=== PATIENT | male | born 1990 | race Caucasian/White ===

== ENCOUNTER 2017-12-03 21:54 | Emergency (ER) | payer OTHER ==
[~2017-12-03] VITALS: Ht 177.8 cm; Wt 140.6 kg
[~2017-12-03 21:54] MED LIST: BASAGLAR K100 UNIT/1 SQ; CLIN300 PO; Cleocin HCl300 MG PO; DOXY100 PO; FISH1000; GLIP5 PO; HYDACE5 PO; Humalog100 UNIT/1 SC; INSDET100 SC; INSUASPI SC; INSULANPEN; LISI20 PO; LISI5 PO; METF500 PO; PIOG30 PO; RIFA300 PO; RXCLIN PO; RXHYDACE PO; Vitamin D2000 UNIT PO; Zofran Odt4 MG SL
[2017-12-04 00:27] LABS: Base Excess Venous 0.3 mmol/L; PCO2 Venous 36.7 mmHg (38-42); PO2 Venous 133 mmHg (38-42); pH Blood Venous 7.44 (7.34-7.37)
[2017-12-04 00:34] LABS: BASOPHILS ABSOLUTE AUTO 0.03 K/mm3 (0.00-0.23); BASOPHILS PERCENT AUTO 0 % (0-2); EOSINOPHILS ABSOLUTE AUTO 0.01 K/mm3 (0.00-0.68); EOSINOPHILS PERCENT AUTO 0 % (0-6); Hematocrit 43.1 % (37.0-53.0); IMMATURE GRAN ABSOLUTE AUTO 0.03 K/mm3 (0.00-0.10); IMMATURE GRAN PERCENT AUTO 0 % (0-1); LYMPHOCYTES ABSOLUTE AUTO 1.46 K/mm3 (0.84-5.20); LYMPHOCYTES PERCENT AUTO 16 % (21-46); MONOCYTES ABSOLUTE AUTO 0.61 K/mm3 (0.16-1.47); MONOCYTES PERCENT AUTO 7 % (4-13); Mean Corpuscular HGB 28.5 pg (26.0-34.0); Mean Corpuscular HGB Conc 34.8 g/dL (31.5-36.5); Mean Corpuscular Volume 82 fL (80-100); Mean Platelet Volume 9.9 fL (9.1-12.4); NEUTROPHILS ABSOLUTE AUTO 7.04 K/mm3 (1.96-9.15); NEUTROPHILS PERCENT AUTO 77 % (41-73); Platelet Count 184 K/mm3 (150-400); RDW Coefficient Variation 16.3 % (11.7-14.2); RDW Standard Deviation 49.1 fL (35.1-46.3); Red Blood Cell Count 5.26 M/mm3 (4.30-5.90); White Blood Cell Count 9.18 K/mm3 (4.00-11.30)
[2017-12-04 00:58] LABS: Alanine Aminotransfer (ALT/SGP 33 U/L (12-78); Albumin, Blood 3.7 g/dL (3.4-5.0); Albumin/Globulin Ratio 0.8 (0.8-1.8); Alk Phos 52 U/L (50-136); Anion Gap 9 mmol/L (6-16); Aspartate Aminotrans (AST/SGOT 19 U/L (12-37); Bilirubin, Total 0.8 mg/dL (0.1-1.0); Blood Urea Nitrogen 16 mg/dL (8-24); Bun/Creatinine Ratio 25.7 (12.0-20.0); CO2, Blood 25 mmol/L (21-32); Calcium, Blood 8.8 mg/dL (8.5-10.1); Chloride, Blood 98 mmol/L (98-108); Creatinine, Blood 0.62 mg/dL (0.60-1.20); Globulin, Blood 4.4 g/dL (2.2-4.0); Glomerular Filtration Rate >60 (60-); Glucose, Blood 401 mg/dL (70-99); Magnesium, Blood 2.1 mg/dL (1.6-2.4); Potassium, Blood 4.2 mmol/L (3.5-5.5); Sodium, Blood 132 mmol/L (136-145); Total Protein, Blood 8.1 g/dL (6.4-8.2)
[2017-12-04 01:03] LABS: Beta-hydroxybutyrate 4.9 mg/dL (0.2-2.8)
[2017-12-04] MEDS ORDERED: Ocuflox5 ML LEFTEYE (01:20)
[2017-12-04] MEDS ORDERED: Floxin10 ML LEFTEAR (01:21)
[2017-12-05] MEDS ORDERED: Norco 5-325 Ta1 EACH PO (22:46)
== END 2017-12-04 01:30 | disposition home or self-care (01) ==
LOC: ER 21:54
PROVIDERS: Emergency Medicine
DX: H60.92 Unspecified otitis externa, left ear (principal); E11.65 Type 2 diabetes mellitus with hyperglycemia; Z91.14 Patient's other noncompliance with medication regimen; Z79.899 Other long term (current) drug therapy; Z79.4 Long term (current) use of insulin; Z79.84 Long term (current) use of oral hypoglycemic drugs; I10 Essential (primary) hypertension; E66.9 Obesity, unspecified
CPT/HCPCS: 80053; 82010; 82803; 82947; 83735; 85025; 96361; 96374; 99283; J1815; J1885; J7030

== ENCOUNTER 2017-12-05 20:06 | Emergency (ER) | payer OTHER ==
[~2017-12-05] VITALS: Ht 177.8 cm; Wt 136.1 kg
[~2017-12-05 20:06] MED LIST changes: +Floxin10 ML LEFTEAR; +Ocuflox5 ML LEFTEYE
[2017-12-05] MEDS ORDERED: Norco 5-325 Ta1 EACH PO (22:46)
== END 2017-12-05 22:54 | disposition home or self-care (01) ==
LOC: ER 20:06
DX: H60.91 Unspecified otitis externa, right ear (principal); H60.92 Unspecified otitis externa, left ear; E11.9 Type 2 diabetes mellitus without complications; I10 Essential (primary) hypertension; Z79.899 Other long term (current) drug therapy; Z79.4 Long term (current) use of insulin
CPT/HCPCS: 99283

== ENCOUNTER → 2019-04-01 | Outpatient (CLI) | payer OTHER ==
[~2019-04-01] MED LIST changes: +ATOR10 PO; +Norco 5-325 Ta1 EACH PO; +THERA-D2000 UNIT PO; +Vancocin HCL1000 M1 IV
== END | disposition home or self-care (01) ==
LOC: LAB SHORT 11:48 → LAB 11:48
DX: L03.032 Cellulitis of left toe (principal)
CPT/HCPCS: 87070; 87075; 87147; 87205

== ENCOUNTER 2019-04-02 10:00 | Day surgery (SDC) | payer OTHER ==
[~2019-04-02] VITALS: Ht 177.8 cm; Wt 133.2 kg
[~2019-04-02 10:00] MED LIST changes: -ATOR10 PO; -THERA-D2000 UNIT PO; -Vancocin HCL1000 M1 IV
[2019-04-02] MEDS ORDERED: ATOR10 PO (11:26)
[2019-04-02] MEDS ORDERED: THERA-D2000 UNIT PO (11:28)
[2019-04-03] MEDS ORDERED: Vancocin HCL1000 M1 IV (07:45)
== END 2019-04-02 12:00 | disposition home or self-care (01) ==
LOC: ATC 10:00
DX: L03.116 Cellulitis of left lower limb (principal); E11.621 Type 2 diabetes mellitus with foot ulcer; L97.529 Non-pressure chronic ulcer of other part of left foot with unspecified severity; I10 Essential (primary) hypertension; Z79.899 Other long term (current) drug therapy
CPT/HCPCS: 96365; 96366; J3370; J7050

== ENCOUNTER 2019-04-02 20:03 | Emergency (ER) | payer OTHER ==
[~2019-04-02] VITALS: Ht 177.8 cm; Wt 133.8 kg
[~2019-04-02 20:03] MED LIST changes: +ATOR10 PO; +THERA-D2000 UNIT PO
[2019-04-03] MEDS ORDERED: Vancocin HCL1000 M1 IV (07:45)
== END 2019-04-02 22:44 | disposition home or self-care (01) ==
LOC: ER 20:03
DX: E11.628 Type 2 diabetes mellitus with other skin complications (principal); L03.031 Cellulitis of right toe; I10 Essential (primary) hypertension; Z79.899 Other long term (current) drug therapy
CPT/HCPCS: 96365; 96366; 99281-25; J3370; J7050

== ENCOUNTER 2019-04-03 07:08 | Day surgery (SDC) | payer OTHER ==
[2019-04-03] MEDS ORDERED: Vancocin HCL1000 M1 IV (07:45)
--- NOTE | 2019-04-03 19:48 | NUR ---
1630: PHARMACY CALLED AND SPOKE WITH CHAD Crowe TO INFORM HER THAT PT TOLD ME THAT HE WONT BE IN TOMORROW D/T WOUND CARE APPT WITH DR HICKMAN. UNSURE IF WILL BE CONTINUING IV VANCOMYCIN.
== END 2019-04-03 22:38 | disposition home or self-care (01) ==
LOC: ATC 07:08
DX: L03.116 Cellulitis of left lower limb (principal); E11.621 Type 2 diabetes mellitus with foot ulcer; L97.529 Non-pressure chronic ulcer of other part of left foot with unspecified severity; I10 Essential (primary) hypertension; Z79.899 Other long term (current) drug therapy
CPT/HCPCS: 96365; 96366; J3370; J7050

== ENCOUNTER 2021-07-24 08:43 | Emergency (ER) | payer OTHER ==
[~2021-07-24] VITALS: Ht 177.8 cm; Wt 124.7 kg
[~2021-07-24 08:43] MED LIST changes: +Vancocin HCL1000 M1 IV
[2021-07-24] MEDS ORDERED: Fenofibrate134 MG PO (09:11)
[2021-07-24] MEDS ORDERED: VITAMIN D5000 UNIT PO (09:12)
[2021-07-24] MEDS ORDERED: METFORMIN HCL500 M3 PO (09:12)
[2021-07-24 09:55] LABS: BASOPHILS ABSOLUTE AUTO 0.04 K/mm3 (0.00-0.23); BASOPHILS PERCENT AUTO 0 % (0-2); EOSINOPHILS ABSOLUTE AUTO 0.09 K/mm3 (0.00-0.68); EOSINOPHILS PERCENT AUTO 1 % (0-6); Hemoglobin 14.1 g/dL (13.5-17.5); IMMATURE GRAN ABSOLUTE AUTO 0.08 K/mm3 (0.00-0.10); IMMATURE GRAN PERCENT AUTO 1 % (0-1); LYMPHOCYTES PERCENT AUTO 9 % (21-46); MONOCYTES ABSOLUTE AUTO 0.77 K/mm3 (0.16-1.47); MONOCYTES PERCENT AUTO 6 % (4-13); Mean Corpuscular HGB Conc 34.4 g/dL (31.5-36.5); Mean Corpuscular Volume 78 fL (80-100); Mean Platelet Volume 9.6 fL (9.1-12.4); NEUTROPHILS ABSOLUTE AUTO 11.61 K/mm3 (1.96-9.15); NEUTROPHILS PERCENT AUTO 84 % (41-73); Platelet Count 224 K/mm3 (150-400); RDW Standard Deviation 45.2 fL (35.1-46.3); Red Blood Cell Count 5.23 M/mm3 (4.30-5.90); White Blood Cell Count 13.79 K/mm3 (4.00-11.30)
[2021-07-24 10:30] LABS: Alanine Aminotransfer (ALT/SGP 30 U/L (12-78); Albumin, Blood 3.5 g/dL (3.4-5.0); Albumin/Globulin Ratio 0.9 (0.8-1.8); Alk Phos 48 U/L (50-136); Anion Gap 8 mmol/L (6-16); Aspartate Aminotrans (AST/SGOT 12 U/L (12-37); Bilirubin, Total 0.7 mg/dL (0.1-1.0); Blood Urea Nitrogen 16 mg/dL (8-24); Bun/Creatinine Ratio 28.4 (12.0-20.0); CO2, Blood 24 mmol/L (21-32); Calcium, Blood 8.8 mg/dL (8.5-10.1); Chloride, Blood 101 mmol/L (98-108); Creatinine, Blood 0.56 mg/dL (0.60-1.20); Globulin, Blood 3.9 g/dL (2.2-4.0); Glomerular Filtration Rate >60 (60-); Glucose, Blood 414 mg/dL (70-99); Potassium, Blood 4.3 mmol/L (3.5-5.5); Sodium, Blood 133 mmol/L (136-145); Total Protein, Blood 7.4 g/dL (6.4-8.2)
[2021-07-24] MEDS ORDERED: CEPH500 PO (10:37)
[2021-07-24] MEDS ORDERED: Monodox100 MG PO (10:37)
== END 2021-07-24 10:44 | disposition home or self-care (01) ==
LOC: ER 08:43
PROVIDERS: Physician Assistant
DX: L03.011 Cellulitis of right finger (principal); E11.9 Type 2 diabetes mellitus without complications; I10 Essential (primary) hypertension; Z79.899 Other long term (current) drug therapy
CPT/HCPCS: 36415; 73130; 80053; 85025; 85651; 99283-25; A9270

== ENCOUNTER 2021-08-21 12:17 | Inpatient (IN) | payer OTHER ==
[~2021-08-21] VITALS: Ht 177.8 cm; Wt 127.0 kg
[~2021-08-21 12:17] MED LIST changes: +CEPH500 PO; +Fenofibrate134 MG PO; +METFORMIN HCL500 M3 PO; +Monodox100 MG PO; +VITAMIN D5000 UNIT PO
[2021-08-21 12:52] LABS: BASOPHILS ABSOLUTE AUTO 0.03 K/mm3 (0.00-0.23); BASOPHILS PERCENT AUTO 1 % (0-2); EOSINOPHILS ABSOLUTE AUTO 0.05 K/mm3 (0.00-0.68); EOSINOPHILS PERCENT AUTO 1 % (0-6); Hematocrit 48.9 % (37.0-53.0); Hemoglobin 16.2 g/dL (13.5-17.5); IMMATURE GRAN ABSOLUTE AUTO 0.05 K/mm3 (0.00-0.10); IMMATURE GRAN PERCENT AUTO 1 % (0-1); LYMPHOCYTES ABSOLUTE AUTO 1.68 K/mm3 (0.84-5.20); LYMPHOCYTES PERCENT AUTO 27 % (21-46); MONOCYTES ABSOLUTE AUTO 0.48 K/mm3 (0.16-1.47); MONOCYTES PERCENT AUTO 8 % (4-13); Mean Corpuscular HGB 26.6 pg (26.0-34.0); Mean Corpuscular HGB Conc 33.1 g/dL (31.5-36.5); Mean Corpuscular Volume 80 fL (80-100); Mean Platelet Volume 9.5 fL (9.1-12.4); NEUTROPHILS PERCENT AUTO 63 % (41-73); Platelet Count 211 K/mm3 (150-400); RDW Coefficient Variation 18.1 % (11.7-14.2); RDW Standard Deviation 48.3 fL (35.1-46.3); White Blood Cell Count 6.19 K/mm3 (4.00-11.30)
[2021-08-21 13:14] LABS: Alanine Aminotransfer (ALT/SGP 54 U/L (12-78); Albumin/Globulin Ratio 0.9 (0.8-1.8); Alk Phos 46 U/L (50-136); Anion Gap 11 mmol/L (6-16); Aspartate Aminotrans (AST/SGOT 31 U/L (12-37); Bilirubin, Total 0.5 mg/dL (0.1-1.0); Blood Urea Nitrogen 16 mg/dL (8-24); Bun/Creatinine Ratio 25.8 (12.0-20.0); CO2, Blood 21 mmol/L (21-32); Calcium, Blood 9.4 mg/dL (8.5-10.1); Chloride, Blood 102 mmol/L (98-108); Creatinine, Blood 0.62 mg/dL (0.60-1.20); Globulin, Blood 4.3 g/dL (2.2-4.0); Glomerular Filtration Rate >60 (60-); Glucose, Blood 360 mg/dL (70-99); Potassium, Blood 4.5 mmol/L (3.5-5.5); Sodium, Blood 134 mmol/L (136-145); Total Protein, Blood 8.3 g/dL (6.4-8.2)
[2021-08-21] MEDS ORDERED: GLIP5ER PO (14:09)
--- NOTE | 2021-08-21 16:51 | NUR ---
PATIENT ARRIVED FROM ER TODAY 08/21/21 @ 1630. RIGHT MIDDLE FINGER CELLULITIS PATIENT IS ALERT AND ORIENTED X4. PATIENT STATES "I NORMALLY HAVE A HIGH PULSE AND BP". IV IS INFUSING WITH FLUIDS. RIGHT MIDDLE FINGER IS RED AND 1+ EDEMA. PATIENT DENIES PAIN TO THE RIGHT MIDDLE FINGER. HE IS ABLE TO BEND THE FINGER AND HAS SENSATION. PATIENT IS LAYING IN BED. CALL LIGHT WITHIN REACH. ORTHO HAS BEEN CONSULTED AND WAITING FOR A CALL BACK.
[2021-08-22 01:39] LABS: Influenza A, PCR NEGATIVE (NEGATIVE); Influenza B, PCR NEGATIVE (NEGATIVE); Resp Syncytial Virus, PCR NEGATIVE (NEGATIVE)
[2021-08-22 02:00] LABS: SARS-Cov-2 (COVID-19) PCR, MMC POSITIVE (NEGATIVE)
[2021-08-22 04:05] LABS: BASOPHILS ABSOLUTE AUTO 0.03 K/mm3 (0.00-0.23); BASOPHILS PERCENT AUTO 1 % (0-2); EOSINOPHILS PERCENT AUTO 2 % (0-6); Hematocrit 44.2 % (37.0-53.0); Hemoglobin 14.3 g/dL (13.5-17.5); IMMATURE GRAN ABSOLUTE AUTO 0.03 K/mm3 (0.00-0.10); IMMATURE GRAN PERCENT AUTO 1 % (0-1); LYMPHOCYTES ABSOLUTE AUTO 2.63 K/mm3 (0.84-5.20); LYMPHOCYTES PERCENT AUTO 41 % (21-46); MONOCYTES ABSOLUTE AUTO 0.61 K/mm3 (0.16-1.47); MONOCYTES PERCENT AUTO 10 % (4-13); Mean Corpuscular HGB 26.5 pg (26.0-34.0); Mean Corpuscular HGB Conc 32.4 g/dL (31.5-36.5); Mean Corpuscular Volume 82 fL (80-100); Mean Platelet Volume 9.7 fL (9.1-12.4); NEUTROPHILS ABSOLUTE AUTO 2.95 K/mm3 (1.96-9.15); NEUTROPHILS PERCENT AUTO 46 % (41-73); Platelet Count 170 K/mm3 (150-400); RDW Coefficient Variation 17.4 % (11.7-14.2); RDW Standard Deviation 50.4 fL (35.1-46.3); White Blood Cell Count 6.35 K/mm3 (4.00-11.30)
[2021-08-22 04:20] LABS: Alanine Aminotransfer (ALT/SGP 45 U/L (12-78); Albumin, Blood 3.4 g/dL (3.4-5.0); Alk Phos 35 U/L (50-136); Anion Gap 8 mmol/L (6-16); Aspartate Aminotrans (AST/SGOT 21 U/L (12-37); Bilirubin, Total 0.5 mg/dL (0.1-1.0); Blood Urea Nitrogen 19 mg/dL (8-24); Bun/Creatinine Ratio 32.5 (12.0-20.0); CO2, Blood 23 mmol/L (21-32); Calcium, Blood 8.5 mg/dL (8.5-10.1); Chloride, Blood 105 mmol/L (98-108); Creatinine, Blood 0.59 mg/dL (0.60-1.20); Globulin, Blood 3.3 g/dL (2.2-4.0); Glomerular Filtration Rate >60 (60-); Glucose, Blood 208 mg/dL (70-99); Potassium, Blood 3.9 mmol/L (3.5-5.5); Sodium, Blood 136 mmol/L (136-145); Total Protein, Blood 6.7 g/dL (6.4-8.2)
--- NOTE | 2021-08-22 07:48 | NUR ---
.SUMMARY PT PREOP AND TESTED POSITIVE FOR COVID. SPOLE WITH PREOP-GILDA GROVES AND MADE AWARE OF COVID + RESULT.PT REMAINS NPO PENDING OR
--- NOTE | 2021-08-22 08:56 | NUR ---
pt watching tv, denies any complaints of pain or needs, states his night was ok, lungs are clear t/o, resp even and unlabored, no cough noted, hrr, edema noted to right ankle, piv site is clear and patent, infusing ns as ordered, npo pending surg, reports voiding and bm's without diff, skin has a walking cast on the left lower ext with a brace, he reports the brace can come off but he leaves it on, reports the cast is for wounds, right middle finger is swollen red with a open area to the middle of it. mirella, states he ambulates without diff, quintin, surg will be this afternoon, pt remains npo. call light in reach.
--- NOTE | 2021-08-22 14:22 | NUR ---
pt left for surgery, mom in room.
--- NOTE | 2021-08-22 14:43 | NUR ---
08/22/21 1443 Malathi Emery NO PREOP ANTIBIOTICS ORDERED PER DUE TO PATIENT BEING ON SCHEDULED UNASYN.
--- NOTE | 2021-08-22 14:54 | NUR ---
Pt. is in surgery, but NOK is present in the room and welcomes my visit. Establish rapport, and learn sravani eof the spiritual dynamics of the pt. from his mother. Agree to return later in the day.
--- NOTE | 2021-08-22 15:10 | NUR ---
ASSUMED CARE OF PATIENT RECIEVED REPORT FROM DR RAMIREZ. GIORGIO ROTH VSS.
--- NOTE | 2021-08-22 15:23 | NUR ---
TO SURGICAL FLLOR REPORT TO LU BACON. S MARY COLEMAN. PATIENT WIDE AWAKE
--- NOTE | 2021-08-22 15:34 | NUR ---
pt returned to room with bulky dressing on right hand. denies pain at this time, states he feels good. v.s. started, call light and bedside table within reach.
--- NOTE | 2021-08-22 18:17 | NUR ---
pt had surgery for his finger today, doing well, v.s. stable, no complaints or needs, call light in reach.
--- NOTE | 2021-08-22 18:23 | NUR ---
Pt. is awake and sitting up in bed. Pt. welcomed my visit. Pt. was pleasant, but was not interested in Spiritual Care. Continued to establish rapport. Pt. displayed evidence of gratitude for the conversation, though denied Spiritual Care.
--- NOTE | 2021-08-23 05:26 | NUR ---
SHIFT SUMMARY: PT IN BED AAOX4 WITH NO SIGNS OF DISTRESS NOTED. VS WNL. BG @ 197MG-Dl. IND DONE TODAY TO RIGHT HAND MIDDLE FINGER. DRESSING IN PLACE C/D/I. IV IN RIGHT AC INFUSING ORDERED PATENT. PT DENIES ANY PAIN. BOOT IN LEFT LOW FOOT. TOLERATED ANTIBOTIC WELL. WILL CONTINUE TO MONITOR AND MAINTAIN ALL PRECAUTIONS.
--- NOTE | 2021-08-23 17:42 | NUR ---
SHIFT SUMMARY PATIENT ALERT AND ORIENTED THROUGHOUT SHIFT. NPO UNTIL DINNER. TOLERATING ADA DIET. RIGHT MIDDLE FINGER RED, SWOLLEN. DRESSING CHANGED X2 THIS SHIFT BY ORTHO. ROUTINE FLUIDS AND ABX. INDEPENDENT IN ROOM. DENIES PAIN.
--- NOTE | 2021-08-24 05:18 | NUR ---
SHIFT SUMMARY: PT IN BED AAOX4. VS WNL. BG @ 211MG/dL. IV WITH NS INFUSING ORDERED TOLERATING WELL. UP AND INDEPENDENT IN ROOM. DRESSING ON RIGHT HAND C/D/I. TOLERATING MEDICATIONS WELL. NPO AFTER MIDNIGHT.MONIORED AND MAINTAINED ALL PRECAUTIONS.
--- NOTE | 2021-08-24 12:18 | NUR ---
PT TO OR AT [facility] 1218.
--- NOTE | 2021-08-24 17:00 | NUR ---
SHIFT SUMMARY POD0 I&D, A/O X4, VSS, TOLERATING DIET AFTER SURGERY, PAIN WELL MANAGED, GAUZE JAIME WRAP TO R HAND NOW c DRAIN PLACED IN OR PER ORTHO. NO ACUTE EVENTS THIS SHIFT, CALL LIGHT IN REACH, WILL CTM AND REPORT TO BRANDAN RN.
--- NOTE | 2021-08-24 23:28 | NUR ---
CALLED DR VILLALOBOS AND UPDATED PT BP HAS BEEN ELEVATED TODAY. GOT A ONE TIME STAT ORDER OF LISINOPRIL 20MG. 2044 PT REC'D MEDICATION ORDERED. ALSO REC'D ORDER TO DC PULSE OX FROM DR. PIERCE.
[2021-08-25 03:43] LABS: Hematocrit 40.7 % (37.0-53.0); Hemoglobin 13.1 g/dL (13.5-17.5); Mean Corpuscular HGB 26.3 pg (26.0-34.0); Mean Corpuscular HGB Conc 32.2 g/dL (31.5-36.5); Mean Corpuscular Volume 82 fL (80-100); Mean Platelet Volume 9.2 fL (9.1-12.4); Platelet Count 133 K/mm3 (150-400); RDW Coefficient Variation 16.4 % (11.7-14.2); RDW Standard Deviation 48.5 fL (35.1-46.3); Red Blood Cell Count 4.99 M/mm3 (4.30-5.90); White Blood Cell Count 5.97 K/mm3 (4.00-11.30)
[2021-08-25 04:09] LABS: Alanine Aminotransfer (ALT/SGP 58 U/L (12-78); Albumin, Blood 3.1 g/dL (3.4-5.0); Alk Phos 32 U/L (50-136); Anion Gap 6 mmol/L (6-16); Aspartate Aminotrans (AST/SGOT 28 U/L (12-37); Bilirubin, Total 0.7 mg/dL (0.1-1.0); Blood Urea Nitrogen 12 mg/dL (8-24); Bun/Creatinine Ratio 18.8 (12.0-20.0); CO2, Blood 23 mmol/L (21-32); Calcium, Blood 8.2 mg/dL (8.5-10.1); Chloride, Blood 110 mmol/L (98-108); Creatinine, Blood 0.64 mg/dL (0.60-1.20); Globulin, Blood 3.2 g/dL (2.2-4.0); Glomerular Filtration Rate >60 (60-); Glucose, Blood 147 mg/dL (70-99); Potassium, Blood 3.8 mmol/L (3.5-5.5); Sodium, Blood 139 mmol/L (136-145); Total Protein, Blood 6.3 g/dL (6.4-8.2)
--- NOTE | 2021-08-25 04:31 | NUR ---
SHIFT SUMMARY: PT IN BED AAOX4. VS STABLE BP ELEVATED. CALLED DR AMBRIZ ORDER TO GIVE ONE TIME DOSE OF BP MEDICATION PER EMAR. IV IN PLACE NOT PATENT. CHANGED IV NS INFUSING ORDERED TOLERATING WELL. INDEPENDENT IN ROOM. UP TO BATHROOM VOIDED WELL. TOLERATED MEDICATIONS PER EMAR. MONITORING AND MAINTAINING PRECAUTION. BP DECREASED THIS MORNING. WILL CONTINUE TO MONITOR.
--- NOTE | 2021-08-25 12:41 | NUR ---
DR. STEWART IN TO SEE PT., DRSG. CHANGE DONE TO LEFT HAND MIDDLE FINGER, NEW PACKING, GUAZE AND JAIME WRAP. PATIENT TOLERATE WELL AND DENIES PAIN.
--- NOTE | 2021-08-26 04:48 | NUR ---
SHIFT SUMMARY: PT SITTING UP IN BED. AAOX4. VS WNL PT DENIES PAIN. IV IN LEFT ARM PATENT SITE DRY AND INTACT. DRESSING ON RIGHT HAND C/D/I. UP AND INDEPENDENT IN ROOM. VOIDING WELL. TOLERATING ALL MEDICATIONS PER EMAR WELL. MONITORING AND MAINTAINING ALL PRECAUTION. PT WITH EYES CLOSED RESTING WELL.
--- NOTE | 2021-08-26 15:02 | NUR ---
DR. STEWART IN TODAY AND DRSG. CHANGE DONE . PATIENT DENIES ANY PAIN. APPETITE IS GOOD AND PT. REPORTS REGULAR BOWEL MOVEMENTS. REMAINS IN ISOLATION. REPORTS NO COVID SYMPTOMS, NO COMPLAINTS. DRSG. ON R HAND WITH JAIME WRAP CLEAN DRY AND INTACT, FINGER TIPS WARM. DR. STEWART REPORT THAT MIDDLE FINGER WITH PACKING IS STILL VERY RED.
--- NOTE | 2021-08-27 04:53 | NUR ---
SHIFT SUMMARY: PT SITTING UP IN BED AAOX4. VS WNL WITH NO SIGNS OF DISTRESS NOTED. IV SITE LEFT ARM PATENT FLUIDS INFUSING ORDERED. RIGHT HAND WITH DRESSING C/D/I. PT DENIES PAIN. MEDICATED PER EMAR. MONITORING AND MAINTAINING ALL PRECAUTION.
[2021-08-27 05:41] LABS: Hemoglobin 12.9 g/dL (13.5-17.5); Mean Corpuscular HGB 26.8 pg (26.0-34.0); Mean Corpuscular HGB Conc 33.1 g/dL (31.5-36.5); Mean Corpuscular Volume 81 fL (80-100); Mean Platelet Volume 9.4 fL (9.1-12.4); Platelet Count 140 K/mm3 (150-400); RDW Coefficient Variation 16.1 % (11.7-14.2); RDW Standard Deviation 47.8 fL (35.1-46.3); Red Blood Cell Count 4.82 M/mm3 (4.30-5.90); White Blood Cell Count 5.45 K/mm3 (4.00-11.30)
[2021-08-27 06:06] LABS: Anion Gap 7 mmol/L (6-16); Blood Urea Nitrogen 9 mg/dL (8-24); Bun/Creatinine Ratio 15.3 (12.0-20.0); CO2, Blood 24 mmol/L (21-32); Calcium, Blood 8.6 mg/dL (8.5-10.1); Chloride, Blood 109 mmol/L (98-108); Creatinine, Blood 0.59 mg/dL (0.60-1.20); Glomerular Filtration Rate >60 (60-); Glucose, Blood 124 mg/dL (70-99); Potassium, Blood 3.6 mmol/L (3.5-5.5); Sodium, Blood 140 mmol/L (136-145)
--- NOTE | 2021-08-27 16:59 | NUR ---
SHIFT SUMMARY: NO ACUTE EVENTS. DENIED PAIN. INDEPENDENT IN ROOM. TOLERATING PO INTAKE, GOOD APPETITE. DR. PIERCE ASSESSED PATIENT AND CHANGED DRESSING. THIS AUTHOR ASKED ABOUT CHANGING PT TO PO ABX AND D/C PLAN, BUT PROVIDER STATED THAT HE SAW A MICRO RESULT THAT SHOWED MARY GROWING IN WOUND. THIS AUTHOR COULD NOT FIND THIS RESULT. D/C PLAN PENDING.
--- NOTE | 2021-08-28 03:35 | NUR ---
PT IS ALERT AND ORIENTED X4. DENIES PAIN MEDICATION. TOLERATING DIET. VOIDING. UP AD GEGE. CAST BOOT ON LEFT FOOT. RIGHT HAND WITH GOOD PULSES AND ABLE TO MOVE THE FINGERS. VSS.
--- NOTE | 2021-08-28 11:54 | NUR ---
08/28/21 1154 Sharon Walter VERIFICATIONS: EDIT CHART.
--- NOTE | 2021-08-28 17:53 | NUR ---
SUMMARY- PT A/O X4, INDEPENDANT IN ROOM. VOIDING AND REG BM'S. HAD BM THIS AM. DENIES PAIN IN FINGER/HAND. DRESSING CDI. BLOOD SUGARS IN GOOD RANGE. DR PIERCE IN AT 1800 TO TAKEDOWN DRESSING AND EVAL INCISION. PLAN TO LIKELY DC IN AM ON [place] ABX.
--- NOTE | 2021-08-29 02:59 | NUR ---
SHIFT SUMMARY: PT. AOX4, INDEPENDENT IN ROOM. DENIES PAIN TO R HAND & R MIDDLE FINGER. USING HIS LAPTOP IN ROOM. NO ACUTE CHANGES NOTED. R HAND WITH DRESSING & ACEWRAP. IV ANTIBIOTICS TOLERATED WELL. REMINDED TO CALL FOR HELP USING A CALL LIGHT FOR NEEDS, PT. VERBALIZED UNDERSTANDING.
[2021-08-29 04:37] LABS: Hematocrit 38.3 % (37.0-53.0); Hemoglobin 12.7 g/dL (13.5-17.5); Mean Corpuscular HGB 26.6 pg (26.0-34.0); Mean Corpuscular HGB Conc 33.2 g/dL (31.5-36.5); Mean Corpuscular Volume 80 fL (80-100); Mean Platelet Volume 9.3 fL (9.1-12.4); Platelet Count 163 K/mm3 (150-400); RDW Standard Deviation 46.9 fL (35.1-46.3); Red Blood Cell Count 4.77 M/mm3 (4.30-5.90)
[2021-08-29 05:04] LABS: Anion Gap 7 mmol/L (6-16); Blood Urea Nitrogen 10 mg/dL (8-24); CO2, Blood 24 mmol/L (21-32); Calcium, Blood 8.4 mg/dL (8.5-10.1); Chloride, Blood 109 mmol/L (98-108); Creatinine, Blood 0.62 mg/dL (0.60-1.20); Glomerular Filtration Rate >60 (60-); Glucose, Blood 119 mg/dL (70-99); Potassium, Blood 3.6 mmol/L (3.5-5.5); Sodium, Blood 140 mmol/L (136-145)
[2021-08-29] MEDS ORDERED: AMOCLA875 PO (12:57)
--- NOTE | 2021-08-29 14:20 | NUR ---
PT. DISCHARGED TO HOME. DC INSTRUCTIONS GIVEN AND PRECRIPTION FOR [facility]UG[facility]IN FAXED TO [facility]. WOUND CLINIC CALLED AND MESSAGE LEFT. PATIENT TO GO TO WOUND CLINIC DAILY PER DR. STEWART. PATIENT BELONGINGS AND DC INSTRUCTIONS SENT WITH PATIENT. W/C TO EXIT, TO HOME.
== END 2021-08-29 14:20 | disposition home or self-care (01) | DRG 579 ==
LOC: ER 12:17 → SURS 12:18
PROVIDERS: Internal Medicine; Orthopaedic Surgery; Physician Assistant; ADMIT Internal Medicine
PROC: 3E03329 Introduction of Other Anti-infective into Peripheral Vein, Percutaneous Approach (ICD-10-PCS; 2021-08-21)
PROC: 0LB70ZZ Excision of Right Hand Tendon, Open Approach (ICD-10-PCS; 2021-08-22)
PROC: 0PBT0ZZ Excision of Right Finger Phalanx, Open Approach (ICD-10-PCS; principal; 2021-08-24 12:00)
DX: L03.011 Cellulitis of right finger (principal); U07.1 COVID-19; M00.9 Pyogenic arthritis, unspecified; Z68.41 Body mass index [BMI] 40.0-44.9, adult; E11.621 Type 2 diabetes mellitus with foot ulcer; E66.01 Morbid (severe) obesity due to excess calories; I10 Essential (primary) hypertension; D64.9 Anemia, unspecified; E55.9 Vitamin D deficiency, unspecified; E11.65 Type 2 diabetes mellitus with hyperglycemia; Z79.899 Other long term (current) drug therapy; Z98.890 Other specified postprocedural states
CPT/HCPCS: 0241U; 36415; 73201; 80048; 80053; 82947; 83036; 85025; 85027; 85651; 86141; 87070; 87075; 87205; 93005; 93010; 96365; 96366; 99284-25; A9270; G0378; J0295; J1815; J2001; J2250; J2704; J3010; J7030; J7050; J7120; Q9967

== ENCOUNTER → 2021-09-02 | Outpatient (CLI) | payer OTHER ==
[~2021-09-02] MED LIST changes: +AMOCLA875 PO; +GLIP5ER PO
[2021-09-02 18:57] LABS: Creatinine Urine 44.2 mg/dL (27.00-270.00); Protein, Urine Quantitative 54.2 mg/dL (0.0-11.9)
== END | disposition home or self-care (01) ==
LOC: LAB SHORT 13:57 → LAB FUT 08-30 13:50
PROVIDERS: Internal Medicine Nephrology
DX: N18.2 Chronic kidney disease, stage 2 (mild) (principal); D63.1 Anemia in chronic kidney disease; N25.81 Secondary hyperparathyroidism of renal origin; E55.9 Vitamin D deficiency, unspecified; E78.00 Pure hypercholesterolemia, unspecified; R76.9 Abnormal immunological finding in serum, unspecified; R94.5 Abnormal results of liver function studies; R94.6 Abnormal results of thyroid function studies
CPT/HCPCS: 81050; 82043; 82570; 84156

== ENCOUNTER 2021-09-06 00:23 | Day surgery (SDC) | payer OTHER | END 2021-09-06 23:59 | disposition home or self-care (01) | LOC: WOUND 00:23 | DX: L03.113 Cellulitis of right upper limb (principal); S61.401D Unspecified open wound of right hand, subsequent encounter; J45.909 Unspecified asthma, uncomplicated; I10 Essential (primary) hypertension; E11.42 Type 2 diabetes mellitus with diabetic polyneuropathy; Z87.891 Personal history of nicotine dependence | CPT/HCPCS: A9270; G0463 ==

== ENCOUNTER 2021-09-13 02:25 | Day surgery (SDC) | payer OTHER | END 2021-09-13 23:29 | disposition home or self-care (01) | LOC: WOUND 02:25 | DX: L03.113 Cellulitis of right upper limb (principal) ==

== ENCOUNTER 2021-09-20 02:53 | Day surgery (SDC) | payer OTHER | END 2021-09-20 23:06 | disposition home or self-care (01) | LOC: WOUND 02:53 | DX: L03.011 Cellulitis of right finger (principal); S61.202A Unspecified open wound of right middle finger without damage to nail, initial encounter; R00.0 Tachycardia, unspecified | CPT/HCPCS: G0463 ==

== ENCOUNTER 2021-09-27 01:20 | Day surgery (SDC) | payer OTHER | END 2021-09-27 23:34 | disposition home or self-care (01) | LOC: WOUND 01:20 | DX: L03.011 Cellulitis of right finger (principal); M86.9 Osteomyelitis, unspecified | CPT/HCPCS: A9270; G0463 ==

== ENCOUNTER 2021-10-11 02:33 | Day surgery (SDC) | payer OTHER | END 2021-10-11 23:22 | disposition home or self-care (01) | LOC: WOUND 02:33 | DX: L03.113 Cellulitis of right upper limb (principal); E11.9 Type 2 diabetes mellitus without complications; I10 Essential (primary) hypertension ==

== ENCOUNTER 2021-10-18 00:59 | Day surgery (SDC) | payer OTHER | END 2021-10-18 23:00 | disposition home or self-care (01) | LOC: WOUND 00:59 | DX: L03.011 Cellulitis of right finger (principal); I10 Essential (primary) hypertension; E11.9 Type 2 diabetes mellitus without complications; S61.401D Unspecified open wound of right hand, subsequent encounter ==

== ENCOUNTER 2021-11-01 00:22 | Day surgery (SDC) | payer OTHER | END 2021-11-01 22:58 | disposition home or self-care (01) | LOC: WOUND 00:22 | DX: L03.113 Cellulitis of right upper limb (principal); S61.401D Unspecified open wound of right hand, subsequent encounter; X58.XXXD Exposure to other specified factors, subsequent encounter | CPT/HCPCS: G0463 ==

== ENCOUNTER 2021-11-15 01:08 | Day surgery (SDC) | payer OTHER | END 2021-11-15 23:26 | disposition home or self-care (01) | LOC: WOUND 01:08 | DX: Z09 Encounter for follow-up examination after completed treatment for conditions other than malignant neoplasm (principal); Z87.2 Personal history of diseases of the skin and subcutaneous tissue | CPT/HCPCS: G0463 ==

== ENCOUNTER 2023-01-29 14:05 | Day surgery (SDC) | payer OTHER ==
[~2023-01-29] VITALS: Ht 177.8 cm; Wt 135.2 kg
[2023-01-29] MEDS ORDERED: CATAPRES0.1 MG PO (14:30)
[2023-01-29] MEDS ORDERED: AMLODIPINE BESYL5 MG PO (14:30)
[2023-01-29] MEDS ORDERED: JARDIANCE10 MG (14:30)
[2023-01-29] MEDS ORDERED: ATORVASTATIN CA20 MG PO (14:30)
[2023-01-29] MEDS ORDERED: FISH OIL 1,4001 EAC2 PO (14:31)
--- NOTE | 2023-01-29 15:05 | NUR ---
01/29/23 4756 Makeda Vaz NOTED HEALING ULCER BOTTOM OF BIG TOE, DRIED SCAB ON 2ND TOE AND LATERAL ANKLE. NOT OPEN.
--- NOTE | 2023-01-29 15:59 | NUR ---
01/29/23 1559 Shiv Kay SCAB ON BOTTOM FOR FOOT PAD BY BIG TOE. RIGHT TOE/FOOT SPLOTCHY RED PATCHES.
[2023-01-29 17:15] VITALS: BP 134/90
== END 2023-01-29 15:36 | disposition home or self-care (01) ==
LOC: ORSCSDS 14:05
PROVIDERS: Podiatrist
PROC: 0QBN0ZZ Excision of Right Metatarsal, Open Approach (ICD-10-PCS; principal; 2023-01-29 15:30)
PROC: 0QBQ0ZZ Excision of Right Toe Phalanx, Open Approach (ICD-10-PCS; principal; 2023-01-29 15:30)
DX: M20.5X1 Other deformities of toe(s) (acquired), right foot (principal); L97.512 Non-pressure chronic ulcer of other part of right foot with fat layer exposed; E11.9 Type 2 diabetes mellitus without complications; I10 Essential (primary) hypertension; Z87.891 Personal history of nicotine dependence; E78.00 Pure hypercholesterolemia, unspecified; E66.01 Morbid (severe) obesity due to excess calories; Z68.41 Body mass index [BMI] 40.0-44.9, adult; Z79.4 Long term (current) use of insulin; Z79.84 Long term (current) use of oral hypoglycemic drugs; Z79.899 Other long term (current) drug therapy
CPT/HCPCS: 82947; A9270; J0690; J2250; J2704; J2795; J3010; J7120; Q4107

== ENCOUNTER → 2023-07-01 | Outpatient (CLI) | payer OTHER ==
[~2023-07-01] MED LIST changes: +AMLODIPINE BESYL5 MG PO; +ATORVASTATIN CA20 MG PO; +CATAPRES0.1 MG PO; +FISH OIL 1,4001 EAC2 PO; +JARDIANCE10 MG
== END ==
LOC: LAB SHORT 09:17 → LAB 09:17
DX: E11.621 Type 2 diabetes mellitus with foot ulcer (principal); L97.512 Non-pressure chronic ulcer of other part of right foot with fat layer exposed
CPT/HCPCS: 87070; 87075; 87077; 87205

== ENCOUNTER → 2023-12-07 | Outpatient (CLI) | payer OTHER | LOC: LAB SHORT 16:45 → LAB 16:45 | DX: E11.621 Type 2 diabetes mellitus with foot ulcer (principal) | CPT/HCPCS: 87070; 87205 ==

== ENCOUNTER → 2025-04-07 | Outpatient (CLI) | payer OTHER ==
[2025-04-07 14:16] LABS: Microalbumin, Urine Quant. 228.0 mg/L (0.000-20.000); Protein, Urine Quantitative 32.7 mg/dL (0.0-11.9)
== END ==
LOC: LAB SHORT 08:10 → LAB 08:10 → LAB FUT 04-04 10:10
PROVIDERS: Internal Medicine Nephrology
DX: N18.2 Chronic kidney disease, stage 2 (mild) (principal); D63.1 Anemia in chronic kidney disease; N25.81 Secondary hyperparathyroidism of renal origin; E55.9 Vitamin D deficiency, unspecified; E78.00 Pure hypercholesterolemia, unspecified; R76.9 Abnormal immunological finding in serum, unspecified; R94.5 Abnormal results of liver function studies; G60.9 Hereditary and idiopathic neuropathy, unspecified
CPT/HCPCS: 81050; 82043; 82570; 84156